=== PATIENT | male | born 1960 | race Caucasian/White ===

== ENCOUNTER → 2018-12-30 09:13 | Outpatient (CLI) | payer BC, SELFPAY ==
[2018-12-30 10:35] LABS: Alanine Aminotransferase 29 IU/L (21-72); Albumin 3.9 g/dL (3.5-5.0); Albumin Globulin Ratio 1.6 (1.0-2.8); Alkaline Phosphatase 81 U/L (38-126); Aspartate Aminotransferase 33 IU/L (17-59); Bilirubin Total 0.8 mg/dL (0.2-1.3); Blood Urea Nitrogen 14 mg/dL (9-20); Calcium 9.3 mg/dL (8.4-10.2); Carbon Dioxide 25 mmol/L (22-32); Chloride 109 mmol/L (98-107); Cholesterol 149 mg/dL (140-199); Estimated Glomerular Filt Rate > 60.0 mL/min (>60); Globulin 2.4 g/dL (1.7-4.1); Glucose 95 mg/dL (70-100); HDL Cholesterol 55 mg/dL (40-60); HEMOLYSIS < 15 (0-50); LDL Cholesterol Calculated 79 mg/dL (<100); Potassium 4.5 mmol/L (3.4-5.1); Sodium 142 mmol/L (137-145); Total Protein 6.3 g/dL (6.3-8.2); Triglycerides 77 mg/dL (35-150)
[2018-12-30 10:42] LABS: Free T3, Triiodothyronine Free 3.39 pg/mL (2.77-5.27); Free T4, Direct Thyroxine 0.89 ng/dL (0.78-2.19)
[2018-12-30 10:56] LABS: Cortisol AM (Before 10AM) 8.81 ug/dL (4.46-22.7)
== END ==
PROVIDERS: PCP Internal Medicine; Visit Provider Internal Medicine
DX: F32.9 Major depressive disorder, single episode, unspecified (principal); E03.9 Hypothyroidism, unspecified; E78.2 Mixed hyperlipidemia
CPT/HCPCS: 36415; 80053; 80061; 82533; 84439; 84481

== ENCOUNTER → 2019-05-26 07:48 | Outpatient (CLI) | payer BC, SELFPAY ==
[2019-05-26 09:52] LABS: TSH w/ Reflex to FT4 0.61 uIU/mL (0.47-4.68)
== END ==
PROVIDERS: PCP Internal Medicine; Visit Provider Internal Medicine
DX: F32.9 Major depressive disorder, single episode, unspecified (principal); E03.9 Hypothyroidism, unspecified
CPT/HCPCS: 36415; 84443

== ENCOUNTER → 2019-07-07 09:30 | Outpatient (CLI) | payer BC, SELFPAY ==
[2019-07-07 11:19] LABS: Free T3, Triiodothyronine Free 3.67 pg/mL (2.77-5.27); Free T4, Direct Thyroxine 0.96 ng/dL (0.78-2.19)
[2019-07-07 11:33] LABS: TSH w/ Reflex to FT4 1.02 uIU/mL (0.47-4.68)
== END ==
PROVIDERS: PCP Internal Medicine; Visit Provider Internal Medicine
DX: E03.9 Hypothyroidism, unspecified (principal)
CPT/HCPCS: 36415; 84439; 84443; 84481

== ENCOUNTER → 2020-12-24 08:34 | Outpatient (CLI) | payer BC, SELFPAY ==
--- NOTE | 2020-12-24 | DI.RAD.S_ITS ---
PROCEDURE: XR HAND LT MIN 3V INDICATIONS: Polyarthritis, unspecified TECHNIQUE: 3 views of the hand(s) acquired. COMPARISON: [facility], CR, XR HAND RT MIN 3V, 12/24/2020, 8:45. FINDINGS: Bones: No fractures or dislocations. Carpal bones are normally aligned. No suspicious bony lesions. Scattered degenerative subchondral sclerosis and spurring. Questionable marginal lucency involving the 3rd metacarpal head otherwise no definite erosions seen. Soft tissues: No suspicious soft tissue calcifications. IMPRESSION: Overall, grossly unremarkable examination. Questionable marginal lucency involving the 3rd metacarpal head which is quite subtle. Otherwise, no evidence of erosions although if clinically warranted, contrast-enhanced MRI could be performed. Dictated by: Haja Argueta M.D. on 12/24/2020 at 10:45 Approved by: Haja Argueta M.D. on 12/24/2020 at 10:48
--- NOTE | 2020-12-24 | DI.RAD.S_ITS ---
PROCEDURE: XR HAND RT MIN 3V INDICATIONS: Polyarthritis, unspecified TECHNIQUE: 3 views of the hand(s) acquired. COMPARISON: [facility], CR, XR HAND LT MIN 3V, 12/24/2020, 8:36. FINDINGS: Bones: No fractures or dislocations. Carpal bones are normally aligned. No suspicious bony lesions. Joint spaces grossly preserved. Marginal lucencies appear to be present at the base of the 2nd metacarpal Soft tissues: No suspicious soft tissue calcifications. IMPRESSION: Marginal lucencies at the base of the 2nd metacarpal raising possibility of erosions. This could be further assessed and confirmed with contrast enhanced MRI as clinically necessary. Dictated by: Haja Argueta M.D. on 12/24/2020 at 10:48 Approved by: Haja Argueta M.D. on 12/24/2020 at 10:50
== END ==
PROVIDERS: PCP Internal Medicine; Referring Provider Internal Medicine; Visit Provider Internal Medicine
DX: M13.0 Polyarthritis, unspecified (principal)
CPT/HCPCS: 73130

== ENCOUNTER → 2021-06-19 16:43 | Outpatient (CLI) | payer BC, SELFPAY ==
[2021-06-19 17:28] LABS: COVID19 -Nasal RAPID POSITIVE (Negative)
== END ==
PROVIDERS: PCP Internal Medicine; Visit Provider Nurse Practitioner Family
DX: Z20.822 Contact with and (suspected) exposure to COVID-19 (principal)
CPT/HCPCS: 87635

== ENCOUNTER → 2021-07-01 10:59 | Outpatient (CLI) | payer BC, SELFPAY ==
[2021-07-01 11:32] LABS: COVID19 -Nasal RAPID Negative (Negative)
== END ==
PROVIDERS: PCP Internal Medicine; Referring Provider Nurse Practitioner Family; Visit Provider Nurse Practitioner Family
DX: Z20.822 Contact with and (suspected) exposure to COVID-19 (principal)
CPT/HCPCS: 87635

== ENCOUNTER → 2021-08-06 11:47 | Outpatient (CLI) | payer BC, SELFPAY ==
--- NOTE | 2021-08-06 11:49 | DI.RAD.S_ITS ---
PROCEDURE: XR ANKLE LT MIN 3V INDICATIONS: left ankle swelling TECHNIQUE: 3 views of the ankle were acquired. COMPARISON: None. FINDINGS: Bones: No fractures or dislocations. Ankle mortise is normally aligned. No suspicious bony lesions. Well-defined plantar calcaneal enthesophyte is seen. Soft tissues: Significant medial ankle soft tissue swelling is seen No tibiotalar joint effusion. Achilles tendon appears normal. IMPRESSION: Medial ankle soft tissue swelling. No gross acute ankle fracture or dislocation. Intact ankle mortise. Dictated by: Sudheer Cortes M.D. on 08/06/2021 at 12:15 Approved by: Sudheer Cortes M.D. on 08/06/2021 at 12:15
--- NOTE | 2021-08-06 11:49 | DI.RAD.S_ITS ---
PROCEDURE: XR FOOT LT MIN 3V INDICATIONS: left foot swelling TECHNIQUE: 3 views of the foot were acquired. COMPARISON: None. FINDINGS: Bones: No fractures or dislocations. Osteoarthritic changes are noted at 1st MTP joint with joint space narrowing and subcortical radiolucencies concerning for erosive changes. No suspicious bony lesions. Soft tissues: Mild soft tissue swelling is noted over medial and dorsal aspect of 1st MTP joint. No tibiotalar joint effusion. Achilles tendon appears normal. 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 No fracture or dislocation. Dictated by: Sudheer Cortes M.D. on 08/06/2021 at 12:15 Approved by: Sudheer Cortes M.D. on 08/06/2021 at 12:16
== END ==
PROVIDERS: PCP Internal Medicine; Referring Provider Nurse Practitioner Family; Visit Provider Nurse Practitioner Family
DX: M79.605 Pain in left leg (principal); M79.89 Other specified soft tissue disorders
CPT/HCPCS: 73610; 73630

== ENCOUNTER 2022-11-09 20:23 | Emergency (ER) | payer OTHER, BC, SELFPAY ==
[2022-11-09 20:54] VITALS: BP 143/87; PULSE 58; RESP 18; TEMP 36.6; O2SAT 98; BMI 33.3
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
[2022-11-09 23:21] VITALS: BP 137/84; PULSE 55; RESP 16; O2SAT 96
== END 2022-11-09 23:22 | disposition home or self-care (01) ==
PROVIDERS: Emergency Provider Emergency Medicine; PCP Internal Medicine
DX: S16.1XXA Strain of muscle, fascia and tendon at neck level, initial encounter (principal); S06.0X0A Concussion without loss of consciousness, initial encounter; V89.2XXA Person injured in unspecified motor-vehicle accident, traffic, initial encounter
CPT/HCPCS: 99281